=== PATIENT | female | born 1970 | race Caucasian/White ===

== ENCOUNTER 2020-01-20 07:42 | Outpatient (CLI) | payer OTHER | END 2020-01-20 07:47 | disposition home or self-care (01) | LOC: LAB 07:42 | DX: E03.8 Other specified hypothyroidism (principal) ==

== ENCOUNTER 2020-01-20 08:06 | Outpatient (CLI) | payer OTHER | END 2020-01-20 08:15 | disposition home or self-care (01) | LOC: SONOGRAMA 08:06 | PROVIDERS: ATTEND Internal Medicine Cardiovascular Disease | DX: E04.8 Other specified nontoxic goiter (principal) ==

== ENCOUNTER → 2020-01-31 06:45 | Outpatient (CLI) | payer OTHER | END | disposition home or self-care (01) | LOC: LAB 06:45 | PROVIDERS: ATTEND Internal Medicine Cardiovascular Disease | DX: E05.80 Other thyrotoxicosis without thyrotoxic crisis or storm (principal) ==